=== PATIENT | male | born 1935 | race Caucasian/White ===

== ENCOUNTER 2020-11-17 07:17 | Day surgery (SDC) | payer MEDICARE, OTHER ==
[2020-11-16 11:50] LABS: BASOPHILS # (AUTO) 0.1 X10'3 (0-0.2); BASOPHILS % (AUTO) 0.9 % (0-1); EOSINOPHILS # (AUTO) 0.2 X10'3 (0-0.9); EOSINOPHILS % (AUTO) 1.9 % (0-6); HEMATOCRIT 41.6 % (42.0-52.0); HEMOGLOBIN 13.8 g/dl (14.0-17.9); LYMPHOCYTES # (AUTO) 1.4 X10'3 (1.1-4.8); LYMPHOCYTES % (AUTO) 13.9 % (21-51); MEAN CORPUSCULAR HEMOGLOBIN 32.8 PG (27.0-31.0); MEAN CORPUSCULAR HGB CONC 33.1 g/dL (33.0-36.5); MEAN CORPUSCULAR VOLUME 98.9 FL (78-98); MEAN PLATELET VOLUME 7.6 FL (7.4-10.4); MONOCYTES # (AUTO) 0.8 X10'3 (0-0.9); NEUTROPHILS # (AUTO) 7.5 X10'3 (1.8-7.7); NEUTROPHILS % (AUTO) 75.3 % (42-75); PLATELET COUNT 388 X10'3 (140-440); RED CELL DISTRIBUTION WIDTH 15.4 % (11.5-14.5)
[2020-11-16 12:00] LABS: PARTIAL THROMBOPLASTIN TIME 29 SECONDS (22-32)
[2020-11-16 12:01] LABS: ALBUMIN 3.3 G/DL (3.4-5.0); ANION GAP 9 (8-16); BLOOD UREA NITROGEN 25 MG/DL (7-18); CALCIUM 9.3 MG/DL (8.5-10.1); CHLORIDE 107 MMOL/L (99-107); CREATININE 1.25 MG/DL (0.60-1.10); GLUCOSE 90 MG/DL (70-104); POTASSIUM 4.2 MMOL/L (3.5-5.1); SODIUM 142 MMOL/L (135-145); TOTAL CARBON DIOXIDE 26.5 MMOL/L (24-32); eGFR 55 ML/MIN
[~2020-11-17] VITALS: Ht 177.8 cm; Wt 95.4 kg
[2020-11-17] VITALS (11 sets, daily range): BP systolic 94–132; BP diastolic 55–86
[~2020-11-17 07:17] MED LIST: nitroGLYCERIN-Tridil 50MG/D5W 250 ML IV ONE
[2020-11-17] MEDS ORDERED: LIDOcaine/PRILOcaine 5gm cream TP ONE (07:50)
[2020-11-17] MEDS ORDERED: LORazepam 0.5 MG tablet PO PRN (07:50)
[2020-11-17] MEDS ORDERED: diphenhydrAMINE 25mg capsule PO PRN (07:50)
[2020-11-17] MEDS ORDERED: normal saline 1,000 ML IV SCH (07:50)
[2020-11-17] MEDS ORDERED: verapamil 2.5 mg/ml inj IV ONE (08:15)
[2020-11-17] MEDS ORDERED: fentaNYL/PF 50MCG/1 ML 2ML syringe ONE (08:15)
[2020-11-17] MEDS ORDERED: LIDOcaine 1% (10mg/ml)w/preservative injection 20ml MDV ONE (08:15)
[2020-11-17] MEDS ORDERED: heparin 1,000unit/ml 10ml vial 10 ML ONE (08:15)
[2020-11-17] MEDS ORDERED: iohexol 350MG/ML 100ml bottle IV ONE (08:15)
[2020-11-17] MEDS ORDERED: midazolam 2 mg/2 ml injection ONE (08:15)
[2020-11-17] MEDS ORDERED: iohexol 350 MG/ML 50ML vial IV ONE (08:15)
[2020-11-17] MEDS ORDERED: nitroGLYCERIN-Tridil 50MG/D5W 250 ML IV ONE (08:16)
[2020-11-17] MEDS ORDERED: APIX5TAB3 PO (08:33)
[2020-11-17] MEDS ORDERED: METO-539 PO (08:34)
[2020-11-17] MEDS ORDERED: ALLO100T PO (08:36)
[2020-11-17] MEDS ORDERED: VITC500T PO (08:39)
[2020-11-17] MEDS ORDERED: FURO-150 PO (08:40)
[2020-11-17] MEDS ORDERED: OMEG1CAP46 PO (08:41)
[2020-11-17] MEDS ORDERED: ASPI81TA52 PO (08:42)
[2020-11-17] MEDS ORDERED: POTA20TA19 PO (08:42)
[2020-11-17 09:50] LABS: ISTAT HGB ART 12.9 g/dl (14.0-18.0); ISTAT Hct ART 38 %PCV (42-52); ISTAT O2 SATURATION ARTERIAL 96 % (95-98); ISTAT SOURCE ART
[2020-11-17] MEDS ORDERED: normal saline 1000ml 1,000 ML IV SCH (10:15)
--- NOTE | 2020-11-17 13:45 | NUR ---
VASCULAR BAND REMOVED, DRSG OF STERILE 2X2 AND TEGADERM PLACED, SITE SOFT AND PALPABLE NO SIGN OF HEMATOMA. DRSG TOPPED WITH FOLDED 4X4'S AND COFLEX. PT UNDERSTANDS TOPPER CAN BE REMOVED PRN IS JUST FOR COMFORT AND SUPPORT. TEGADERM DRSG TO BE REMOVED 24-48 HOURS PRIOR TO SHOWER. DRSG REMOVED FROM RIGHT A/C, SITE CLEAR OF HEMATOMA, LARGE BANDAID PLACED OVER SITE. Addendum: 11/17/20 at 1556 by Deepika Araujo RN CORRECTED TIME OF VASCULAR BAND REMOVAL IS 1415
== END 2020-11-17 15:10 | disposition home or self-care (01) ==
LOC: SSTAY O 07:17
PROVIDERS: ATTEND Internal Medicine Cardiovascular Disease
DX: R53.83 Other fatigue (principal); R07.9 Chest pain, unspecified; I25.10 Atherosclerotic heart disease of native coronary artery without angina pectoris; I48.91 Unspecified atrial fibrillation; I11.0 Hypertensive heart disease with heart failure; I50.9 Heart failure, unspecified; E78.5 Hyperlipidemia, unspecified; M10.9 Gout, unspecified; M19.90 Unspecified osteoarthritis, unspecified site; I34.0 Nonrheumatic mitral (valve) insufficiency; E66.9 Obesity, unspecified; Z68.30 Body mass index [BMI] 30.0-30.9, adult; Z79.01 Long term (current) use of anticoagulants; Z98.41 Cataract extraction status, right eye; Z79.899 Other long term (current) drug therapy; Z79.82 Long term (current) use of aspirin; Z98.42 Cataract extraction status, left eye; Z86.16 Personal history of COVID-19; Z98.890 Other specified postprocedural states; Z82.49 Family history of ischemic heart disease and other diseases of the circulatory system; Z83.6 Family history of other diseases of the respiratory system
CPT/HCPCS: 36415; 76937; 80048; 82803; 85014; 85025; 85610; 85730; 93005; 93460; 99152; 99153; C1769; C1894; J1644; J2001; J2250; J3010; Q9967; A4620; A6258; C1751; J3490

== ENCOUNTER 2020-11-30 08:02 | Day surgery (SDC) | payer MEDICARE, OTHER ==
[2020-11-29 14:14] LABS: BASOPHILS % (AUTO) 0.3 % (0-1); EOSINOPHILS # (AUTO) 0.1 X10'3 (0-0.9); EOSINOPHILS % (AUTO) 1.7 % (0-6); HEMATOCRIT 40.4 % (42.0-52.0); HEMOGLOBIN 13.3 g/dl (14.0-17.9); LYMPHOCYTES # (AUTO) 0.9 X10'3 (1.1-4.8); MEAN CORPUSCULAR HEMOGLOBIN 32.6 PG (27.0-31.0); MEAN CORPUSCULAR HGB CONC 32.9 g/dL (33.0-36.5); MEAN CORPUSCULAR VOLUME 98.9 FL (78-98); MEAN PLATELET VOLUME 7.7 FL (7.4-10.4); MONOCYTES # (AUTO) 0.8 X10'3 (0-0.9); MONOCYTES % (AUTO) 11.1 % (2-12); NEUTROPHILS # (AUTO) 5.2 X10'3 (1.8-7.7); NEUTROPHILS % (AUTO) 73.9 % (42-75); PLATELET COUNT 244 X10'3 (140-440); RED BLOOD COUNT 4.08 X10'6 (4.70-6.10)
[2020-11-29 14:16] LABS: ALBUMIN 3.1 G/DL (3.4-5.0); ANION GAP 8 (8-16); BLOOD UREA NITROGEN 23 MG/DL (7-18); BUN/CREATININE RATIO 18.7 (5.4-32.0); CALCIUM 8.7 MG/DL (8.5-10.1); CHLORIDE 105 MMOL/L (99-107); CREATININE 1.23 MG/DL (0.60-1.10); GLUCOSE 95 MG/DL (70-104); POTASSIUM 4.4 MMOL/L (3.5-5.1); SODIUM 141 MMOL/L (135-145); eGFR 56 ML/MIN
[2020-11-30] VITALS (14 sets, daily range): BP systolic 99–132; BP diastolic 58–83
[~2020-11-30] VITALS: Ht 170.2 cm; Wt 95.6 kg
[~2020-11-30 08:02] MED LIST changes: +ALLO100T PO; +APIX5TAB3 PO; +ASPI81TA52 PO; +FURO-150 PO; +METO-539 PO; +OMEG1CAP46 PO; +POTA20TA19 PO; +VITC500T PO; -nitroGLYCERIN-Tridil 50MG/D5W 250 ML IV ONE
[2020-11-30] MEDS ORDERED: ATOR10TA70 PO (08:34)
[2020-11-30] MEDS ORDERED: OMEG1CAP46 PO (08:34)
[2020-11-30] MEDS ORDERED: NITR0.4T48 (08:35)
[2020-11-30] MEDS ORDERED: AMIO200T61 PO (08:35)
[2020-11-30] MEDS ORDERED: MULT-1085 PO (08:36)
[2020-11-30] MEDS ORDERED: amiodarone 150mg/dext, iso-os 100 ML IV ONE (08:45)
[2020-11-30] MEDS ORDERED: atropine 0.1mg/ml 10ml syringe IV ONE (08:45)
[2020-11-30] MEDS ORDERED: MIDAZolam 1mg/ml 10ml vial IV ONE (08:45)
[2020-11-30] MEDS ORDERED: morphine 10mg/ml inj. IV ONE (08:45)
[2020-11-30] MEDS ORDERED: LORazepam 0.5 MG tablet PO ONE (08:45)
[2020-11-30] MEDS ORDERED: diphenhydrAMINE 25mg capsule PO ONE (08:45)
[2020-11-30] MEDS ORDERED: POTASSIUM BICARB 20meq eff tab 20 MEQ TABLET.EFF PO ONE (09:50)
[2020-11-30] MEDS ORDERED: furosemide 40mg/4ml inj IV ONE (09:50)
== END 2020-11-30 13:05 | disposition home or self-care (01) ==
LOC: SSTAY O 08:02
PROVIDERS: ATTEND Internal Medicine Cardiovascular Disease
DX: I48.19 Other persistent atrial fibrillation (principal); E78.5 Hyperlipidemia, unspecified; I25.10 Atherosclerotic heart disease of native coronary artery without angina pectoris; I11.0 Hypertensive heart disease with heart failure; I50.9 Heart failure, unspecified; M10.9 Gout, unspecified; M19.90 Unspecified osteoarthritis, unspecified site; E66.9 Obesity, unspecified; Z68.30 Body mass index [BMI] 30.0-30.9, adult; Z79.899 Other long term (current) drug therapy; Z79.01 Long term (current) use of anticoagulants; Z79.82 Long term (current) use of aspirin; Z98.41 Cataract extraction status, right eye; Z98.42 Cataract extraction status, left eye; Z82.49 Family history of ischemic heart disease and other diseases of the circulatory system
CPT/HCPCS: 36415; 80048; 85025; 85610; 92960; 93005

== ENCOUNTER 2020-12-08 12:05 | Emergency (ER) | payer MEDICARE, OTHER ==
[~2020-12-08] VITALS: Ht 177.8 cm; Wt 86.0 kg
[~2020-12-08 12:05] MED LIST changes: +AMIO200T61 PO; -ASPI81TA52 PO; +ATOR10TA70 PO; +MULT-1085 PO; +NITR0.4T48
[2020-12-08 13:34] LABS: BASOPHILS % (AUTO) 0.4 % (0-1); EOSINOPHILS # (AUTO) 0.3 X10'3 (0-0.9); EOSINOPHILS % (AUTO) 3.9 % (0-6); HEMATOCRIT 38.9 % (42.0-52.0); HEMOGLOBIN 12.9 g/dl (14.0-17.9); LYMPHOCYTES # (AUTO) 1.2 X10'3 (1.1-4.8); LYMPHOCYTES % (AUTO) 18.8 % (21-51); MEAN CORPUSCULAR HEMOGLOBIN 32.3 PG (27.0-31.0); MEAN CORPUSCULAR VOLUME 97.9 FL (78-98); MEAN PLATELET VOLUME 7.7 FL (7.4-10.4); MONOCYTES # (AUTO) 0.8 X10'3 (0-0.9); MONOCYTES % (AUTO) 12.4 % (2-12); NEUTROPHILS # (AUTO) 4.2 X10'3 (1.8-7.7); NEUTROPHILS % (AUTO) 64.5 % (42-75); PLATELET COUNT 254 X10'3 (140-440); RED BLOOD COUNT 3.98 X10'6 (4.70-6.10); RED CELL DISTRIBUTION WIDTH 15.4 % (11.5-14.5); WHITE BLOOD COUNT 6.6 X10'3 (4.5-11.0)
[2020-12-08 13:47] LABS: ALANINE AMINOTRANSFERASE 38 U/L (12-78); ALBUMIN 3.1 G/DL (3.4-5.0); ALBUMIN/GLOBULIN RATIO 0.9 (1.1-1.5); ALKALINE PHOSPHATASE 83 IU/L (46-116); ANION GAP 6 (8-16); ASPARTATE AMINO TRANSFERASE 27 U/L (10-37); BILIRUBIN,TOTAL 0.6 MG/DL (0.1-1.0); BLOOD UREA NITROGEN 23 MG/DL (7-18); BUN/CREATININE RATIO 19.7 (5.4-32.0); CHLORIDE 103 MMOL/L (99-107); CREATININE 1.17 MG/DL (0.60-1.10); GLUCOSE 87 MG/DL (70-104); POTASSIUM 4.2 MMOL/L (3.5-5.1); SODIUM 141 MMOL/L (135-145); TOTAL CARBON DIOXIDE 31.6 MMOL/L (24-32); TOTAL PROTEIN 6.5 G/DL (6.4-8.2); eGFR 59 ML/MIN
[2020-12-08 16:10] VITALS: BP 100/74
== END 2020-12-08 14:29 | disposition home or self-care (01) ==
LOC: ER 12:05
DX: J90 Pleural effusion, not elsewhere classified (principal); R06.02 Shortness of breath; R06.01 Orthopnea; R50.9 Fever, unspecified; I48.91 Unspecified atrial fibrillation; I25.10 Atherosclerotic heart disease of native coronary artery without angina pectoris; I11.0 Hypertensive heart disease with heart failure; I50.9 Heart failure, unspecified; E78.00 Pure hypercholesterolemia, unspecified; Z79.899 Other long term (current) drug therapy
CPT/HCPCS: 36415; 71045; 80053; 85025; 85610; 93005; 99285

== ENCOUNTER 2022-01-04 11:10 | Emergency (ER) | payer MEDICARE, OTHER ==
[~2022-01-04] VITALS: Ht 172.7 cm; Wt 88.2 kg
[~2022-01-04 11:10] MED LIST changes: +POTA-207 PO; -POTA20TA19 PO
[2022-01-04 11:51] LABS: BASOPHILS % (AUTO) 0.5 % (0-1); EOSINOPHILS # (AUTO) 0.1 X10'3 (0-0.9); EOSINOPHILS % (AUTO) 2.4 % (0-6); HEMATOCRIT 32.7 % (42.0-52.0); LYMPHOCYTES % (AUTO) 17.9 % (21-51); MEAN CORPUSCULAR HGB CONC 33.8 g/dL (33.0-36.5); MEAN CORPUSCULAR VOLUME 106.5 FL (78-98); MEAN PLATELET VOLUME 6.8 FL (7.4-10.4); MONOCYTES # (AUTO) 0.7 X10'3 (0-0.9); MONOCYTES % (AUTO) 12.9 % (2-12); NEUTROPHILS # (AUTO) 3.6 X10'3 (1.8-7.7); NEUTROPHILS % (AUTO) 66.3 % (42-75); PLATELET COUNT 225 X10'3 (140-440); RED BLOOD COUNT 3.07 X10'6 (4.70-6.10); WHITE BLOOD COUNT 5.4 X10'3 (4.5-11.0)
[2022-01-04 12:08] LABS: ALANINE AMINOTRANSFERASE 34 U/L (12-78); ALBUMIN 3.8 G/DL (3.4-5.0); ALBUMIN/GLOBULIN RATIO 1.1 (1.1-1.5); ALKALINE PHOSPHATASE 148 IU/L (46-116); ANION GAP 9 (8-16); ASPARTATE AMINO TRANSFERASE 28 U/L (10-37); BILIRUBIN,TOTAL 0.7 MG/DL (0.1-1.0); BLOOD UREA NITROGEN 39 MG/DL (7-18); BUN/CREATININE RATIO 32.8 (5.4-32.0); CALCIUM 8.8 MG/DL (8.5-10.1); CHLORIDE 104 MMOL/L (99-107); CREATININE 1.19 MG/DL (0.60-1.10); GLUCOSE 82 MG/DL (70-104); POTASSIUM 4.7 MMOL/L (3.5-5.1); SODIUM 141 MMOL/L (135-145); TOTAL CARBON DIOXIDE 27.6 MMOL/L (24-32); TOTAL PROTEIN 7.4 G/DL (6.4-8.2); eGFR 58 ML/MIN
[2022-01-04] MEDS ORDERED: furosemide 10 MG/1 ML 10ml inj IV ONE (13:00)
[2022-01-04] MEDS ORDERED: FURO-150 PO (13:02)
[2022-01-04 13:22] VITALS: BP 118/81
== END 2022-01-04 13:23 | disposition home or self-care (01) ==
LOC: ER 11:11
DX: J90 Pleural effusion, not elsewhere classified (principal); I50.9 Heart failure, unspecified; I48.91 Unspecified atrial fibrillation; I11.0 Hypertensive heart disease with heart failure; I25.10 Atherosclerotic heart disease of native coronary artery without angina pectoris; E78.00 Pure hypercholesterolemia, unspecified; Z79.899 Other long term (current) drug therapy
CPT/HCPCS: 36415; 71045; 80053; 83880; 84484; 85025; 93005; 96374; 99285; J1940

== ENCOUNTER 2022-05-23 08:53 | Outpatient (CLI) | payer MEDICARE, OTHER ==
[~2022-05-23] VITALS: Ht 162.6 cm; Wt 75.7 kg
[2022-05-23] MEDS ORDERED: regadenoson 0.4mg/5ml syringe IV ONE (09:55)
[2022-05-23] MEDS ORDERED: nitroGLYCERIN 0.4mg SUBLingual tab SL PRN (10:15)
[2022-05-23 10:26] VITALS: BP 104/54
[2022-05-23] MEDS ORDERED: aminophylline 500mg/20ml vial IV ONE (10:30)
[2022-05-23] MEDS ORDERED: aminophylline 250mg/10ml inj. IV ONE (10:35)
[2022-05-23 10:57] VITALS: BP 93/50
[2022-05-23 10:58] VITALS: BP 98/45
[2022-05-23 10:59] VITALS: BP 98/41
[2022-05-23 11:00] VITALS: BP 98/43
[2022-05-23 11:01] VITALS: BP 101/44
== END 2022-05-23 23:59 | disposition home or self-care (01) ==
LOC: RAD 08:53
PROVIDERS: ATTEND Internal Medicine Cardiovascular Disease
DX: I08.8 Other rheumatic multiple valve diseases (principal); I25.10 Atherosclerotic heart disease of native coronary artery without angina pectoris; I50.30 Unspecified diastolic (congestive) heart failure
CPT/HCPCS: 78452; 93306; A9500; J0280; J2785

== ENCOUNTER 2022-06-11 16:23 | Emergency (ER) | payer MEDICARE, OTHER ==
[~2022-06-11] VITALS: Ht 177.8 cm; Wt 79.5 kg
[2022-06-11 16:31] VITALS: BP 101/63
[2022-06-11 17:05] LABS: BASOPHILS % (AUTO) 0.2 % (0-1); EOSINOPHILS # (AUTO) 0.1 X10'3 (0-0.9); EOSINOPHILS % (AUTO) 1.5 % (0-6); HEMATOCRIT 35.1 % (42.0-52.0); HEMOGLOBIN 11.8 g/dl (14.0-17.9); LYMPHOCYTES # (AUTO) 0.7 X10'3 (1.1-4.8); LYMPHOCYTES % (AUTO) 8.3 % (21-51); MEAN CORPUSCULAR HEMOGLOBIN 35.3 PG (27.0-31.0); MEAN CORPUSCULAR HGB CONC 33.7 g/dL (33.0-36.5); MEAN CORPUSCULAR VOLUME 104.5 FL (78-98); MEAN PLATELET VOLUME 7.6 FL (7.4-10.4); MONOCYTES # (AUTO) 0.8 X10'3 (0-0.9); MONOCYTES % (AUTO) 8.6 % (2-12); NEUTROPHILS # (AUTO) 7.3 X10'3 (1.8-7.7); NEUTROPHILS % (AUTO) 81.4 % (42-75); PLATELET COUNT 275 X10'3 (140-440); RED BLOOD COUNT 3.36 X10'6 (4.70-6.10); RED CELL DISTRIBUTION WIDTH 15.3 % (11.5-14.5); WHITE BLOOD COUNT 8.9 X10'3 (4.5-11.0)
[2022-06-11 17:15] LABS: ALANINE AMINOTRANSFERASE 38 U/L (12-78); ALBUMIN 3.6 G/DL (3.4-5.0); ALBUMIN/GLOBULIN RATIO 0.8 (1.1-1.5); ALKALINE PHOSPHATASE 161 IU/L (46-116); ANION GAP 12 (8-16); ASPARTATE AMINO TRANSFERASE 28 U/L (10-37); BILIRUBIN,TOTAL 0.6 MG/DL (0.1-1.0); BLOOD UREA NITROGEN 40 MG/DL (7-18); BUN/CREATININE RATIO 38.8 (5.4-32.0); CALCIUM 9.7 MG/DL (8.5-10.1); CHLORIDE 98 MMOL/L (99-107); CREATININE 1.03 MG/DL (0.60-1.10); GLUCOSE 94 MG/DL (70-104); POTASSIUM 4.2 MMOL/L (3.5-5.1); SODIUM 140 MMOL/L (135-145); TOTAL CARBON DIOXIDE 30.4 MMOL/L (24-32); TOTAL PROTEIN 7.9 G/DL (6.4-8.2); eGFR 68 ML/MIN
== END 2022-06-11 18:56 | disposition left against medical advice (07) ==
LOC: ER 16:25
DX: R07.9 Chest pain, unspecified (principal); Z53.21 Procedure and treatment not carried out due to patient leaving prior to being seen by health care provider
CPT/HCPCS: 36415; 71045; 80053; 83880; 84484; 85025; 93005

== ENCOUNTER 2022-06-26 16:29 | Inpatient (IN) | payer MEDICARE, OTHER ==
[~2022-06-26] VITALS: Ht 170.2 cm; Wt 72.8 kg
[2022-06-26] MEDS ORDERED: normal saline 1000ML IV soln IVB ONE (16:45)
[2022-06-26 16:54] LABS: BASOPHILS % (AUTO) 0.1 % (0-1); EOSINOPHILS % (AUTO) 0.3 % (0-6); HEMATOCRIT 31.1 % (42.0-52.0); HEMOGLOBIN 10.3 g/dl (14.0-17.9); LYMPHOCYTES # (AUTO) 0.5 X10'3 (1.1-4.8); LYMPHOCYTES % (AUTO) 3.2 % (21-51); MEAN CORPUSCULAR HEMOGLOBIN 34.5 PG (27.0-31.0); MEAN CORPUSCULAR VOLUME 104.4 FL (78-98); MEAN PLATELET VOLUME 7.7 FL (7.4-10.4); MONOCYTES # (AUTO) 0.8 X10'3 (0-0.9); MONOCYTES % (AUTO) 5.9 % (2-12); NEUTROPHILS # (AUTO) 12.8 X10'3 (1.8-7.7); NEUTROPHILS % (AUTO) 90.5 % (42-75); PLATELET COUNT 218 X10'3 (140-440); RED BLOOD COUNT 2.98 X10'6 (4.70-6.10); RED CELL DISTRIBUTION WIDTH 15.2 % (11.5-14.5); WHITE BLOOD COUNT 14.1 X10'3 (4.5-11.0)
[2022-06-26 17:12] LABS: ALANINE AMINOTRANSFERASE 30 U/L (12-78); ALBUMIN 3.1 G/DL (3.4-5.0); ALBUMIN/GLOBULIN RATIO 0.9 (1.1-1.5); ALKALINE PHOSPHATASE 133 IU/L (46-116); ANION GAP 6 (8-16); ASPARTATE AMINO TRANSFERASE 24 U/L (10-37); BLOOD UREA NITROGEN 26 MG/DL (7-18); BUN/CREATININE RATIO 27.1 (5.4-32.0); CALCIUM 8.6 MG/DL (8.5-10.1); CHLORIDE 102 MMOL/L (99-107); CREATININE 0.96 MG/DL (0.60-1.10); GLUCOSE 107 MG/DL (70-104); POTASSIUM 3.8 MMOL/L (3.5-5.1); SODIUM 145 MMOL/L (135-145); TOTAL CARBON DIOXIDE 36.9 MMOL/L (24-32); TOTAL PROTEIN 6.7 G/DL (6.4-8.2); eGFR 74 ML/MIN
[2022-06-26] MEDS ORDERED: CefTRIAXone 2gm/D5W 50ml BAG 50 ML IV ONE (17:45)
[2022-06-26] MEDS ORDERED: azithromycin/NS 500mg/250ml 250 ML IV ONE (17:49)
[2022-06-26] MEDS ORDERED: bisacodyl 10mg suppository rectal RC PRN (18:15)
[2022-06-26] MEDS ORDERED: POTASSIUM BICARB 20meq eff tab 20 MEQ TABLET.EFF PO PRN ×2 (18:15)
[2022-06-26] MEDS ORDERED: ondansetron/PF 4mg/2ml inj IV PRN (18:15)
[2022-06-26] MEDS ORDERED: HYDROcodone/acetaminophen 10/325mg tab PO PRN (18:15)
[2022-06-26] MEDS ORDERED: magnesium 4gm in 100ml NS 100 ML IV PRN (18:15)
[2022-06-26] MEDS ORDERED: magnesium 2GM in 50ml NS 50 ML IV PRN (18:15)
[2022-06-26] MEDS ORDERED: ondansetron 4mg rapidly disintigrating tab PO PRN (18:15)
[2022-06-26] MEDS ORDERED: potassium CL 10mEq/100ml bag 100 ML IV PRN (18:15)
[2022-06-26] MEDS ORDERED: mag hydrox/Alum hydrox/simeth 30ml oral suspension PO PRN (18:15)
[2022-06-26] MEDS ORDERED: acetaminophen 650mg rectal suppository RC PRN (18:15)
[2022-06-26] MEDS ORDERED: HYDROcodone/acetaminophen 5mg/325mg tablet PO PRN (18:15)
[2022-06-26] MEDS ORDERED: acetaminophen 325mg tablet PO PRN ×2 (18:15)
[2022-06-26] MEDS ORDERED: magnesium hydroxide 30ml (MOM) UD suspension PO PRN (18:15)
[2022-06-26] MEDS ORDERED: magnesium Cl slow-release 64mg tablet PO PRN (18:15)
[2022-06-26] MEDS ORDERED: PERFLUTREN PROTEIN-A MICROSPHR (Optison) 0.22 MG/ML 3ML VIAL IV ONE (18:15)
--- NOTE | 2022-06-26 18:30 | NUR ---
Dr. Reno in with patient, he is to be admitted for PNA. He is resting comfortably on gurney with family at bedside.
[2022-06-26 18:58] LABS: CHOLESTEROL 122 MG/DL (0-200); HDL CHOLESTEROL 62 MG/DL (35-60); LDL CHOLESTEROL 49 MG/DL (50-100); MAGNESIUM 1.9 MG/DL (1.5-2.4); TRIGLYCERIDES 53 MG/DL (20-135)
[2022-06-26] MEDS: K and/or MAG REPLACEMENT MC SCH (20:00)
[2022-06-26] MEDS: furosemide 20 MG/2 ML vial IV SCH (20:00)
[2022-06-26] MEDS: docusate sod 100mg capsule PO SCH (20:00)
[2022-06-26 20:01] LABS: CLARITY,URINE CLEAR (Clear); COLOR,URINE YELLOW (Yellow); GLUCOSE, URINE NEGATIVE (Neg); KETONES,URINE NEGATIVE (Neg); LEUKOCYTE ESTERASE ,URINE NEGATIVE (Neg); NITRITES, URINE NEGATIVE (Neg); OCCULT BLOOD,URINE NEGATIVE (Neg); PH,URINE 5.5 (4.8-8.0); PROTEIN,URINE NEGATIVE (Neg); UROBILINOGEN,URINE 0.2 E.U/dL (0.2-1.0)
[2022-06-26 20:13] LABS: UA COLLECTION TYPE NON-SPECIFIED
[2022-06-26] MEDS: apixaban 5mg tablet PO SCH (20:35)
--- NOTE | 2022-06-26 22:19 | NUR ---
Moved to hosptial bed.
[2022-06-27 07:45] LABS: BASOPHILS % (AUTO) 0.1 % (0-1); EOSINOPHILS % (AUTO) 0.3 % (0-6); HEMATOCRIT 27.2 % (42.0-52.0); HEMOGLOBIN 9.2 g/dl (14.0-17.9); LYMPHOCYTES # (AUTO) 0.8 X10'3 (1.1-4.8); LYMPHOCYTES % (AUTO) 6.8 % (21-51); MEAN CORPUSCULAR HGB CONC 33.6 g/dL (33.0-36.5); MEAN CORPUSCULAR VOLUME 104.1 FL (78-98); MEAN PLATELET VOLUME 7.8 FL (7.4-10.4); MONOCYTES # (AUTO) 0.8 X10'3 (0-0.9); MONOCYTES % (AUTO) 6.9 % (2-12); NEUTROPHILS # (AUTO) 9.6 X10'3 (1.8-7.7); NEUTROPHILS % (AUTO) 85.9 % (42-75); PLATELET COUNT 178 X10'3 (140-440); RED BLOOD COUNT 2.61 X10'6 (4.70-6.10); RED CELL DISTRIBUTION WIDTH 15.1 % (11.5-14.5); WHITE BLOOD COUNT 11.2 X10'3 (4.5-11.0)
[2022-06-27 07:56] LABS: ALANINE AMINOTRANSFERASE 23 U/L (12-78); ALBUMIN 2.7 G/DL (3.4-5.0); ALBUMIN/GLOBULIN RATIO 0.8 (1.1-1.5); ALKALINE PHOSPHATASE 114 IU/L (46-116); ANION GAP 0 (8-16); ASPARTATE AMINO TRANSFERASE 18 U/L (10-37); BILIRUBIN,TOTAL 0.7 MG/DL (0.1-1.0); BLOOD UREA NITROGEN 31 MG/DL (7-18); BUN/CREATININE RATIO 29.2 (5.4-32.0); CALCIUM 8.6 MG/DL (8.5-10.1); CHLORIDE 103 MMOL/L (99-107); CREATININE 1.06 MG/DL (0.60-1.10); GLUCOSE 88 MG/DL (70-104); MAGNESIUM 1.8 MG/DL (1.5-2.4); PHOSPHORUS 3.9 MG/DL (2.3-4.5); POTASSIUM 4.1 MMOL/L (3.5-5.1); SODIUM 142 MMOL/L (135-145); TOTAL CARBON DIOXIDE 39.2 MMOL/L (24-32); TOTAL PROTEIN 6.1 G/DL (6.4-8.2); eGFR 66 ML/MIN
[2022-06-27 08:00] VITALS: BP 98/62
[2022-06-27] MEDS: azithromycin 250mg tablet PO SCH (08:24)
[2022-06-27] MEDS: CefTRIAXone/D5W-Rocephin 1gm 50 ML IV SCH (08:24)
[2022-06-27] MEDS: amiodarone 200mg tablet PO SCH (08:24)
[2022-06-27] MEDS: apixaban 5mg tablet PO SCH ×2 (08:25→19:34)
[2022-06-27] MEDS: K and/or MAG REPLACEMENT MC SCH ×2 (08:25→19:16)
[2022-06-27] MEDS: docusate sod 100mg capsule PO SCH ×2 (08:25→19:34)
[2022-06-27] MEDS: furosemide 20 MG/2 ML vial IV SCH ×2 (08:26→19:33)
[2022-06-27] MEDS: metoprolol succinate 25mg (24-HOUR) SR. Tablet PO SCH (08:28)
[2022-06-27] MEDS: potassium Cl 20 mEq SR tablet PO SCH (08:29)
[2022-06-27 11:11] VITALS: BP 83/59
[2022-06-27] MEDS ORDERED: iohexol 350MG/ML 100ml bottle IV ONE (15:23)
[2022-06-27 15:56] VITALS: BP 95/58
[2022-06-27 18:00] VITALS: BP 95/64
--- NOTE | 2022-06-27 18:00 | NUR ---
Patient in room PCU 3023. I have received report from Salas MULTANI and had the opportunity to ask questions and assume patient care.
[2022-06-27 22:00] VITALS: BP 95/60
[2022-06-28] VITALS (8 sets, daily range): BP systolic 89–115; BP diastolic 52–70
[2022-06-28 06:10] LABS: BASOPHILS % (AUTO) 0.3 % (0-1); EOSINOPHILS # (AUTO) 0.1 X10'3 (0-0.9); EOSINOPHILS % (AUTO) 0.5 % (0-6); HEMATOCRIT 27.7 % (42.0-52.0); HEMOGLOBIN 9.4 g/dl (14.0-17.9); LYMPHOCYTES # (AUTO) 0.7 X10'3 (1.1-4.8); LYMPHOCYTES % (AUTO) 7.1 % (21-51); MEAN CORPUSCULAR HEMOGLOBIN 35.4 PG (27.0-31.0); MEAN CORPUSCULAR VOLUME 104.3 FL (78-98); MONOCYTES # (AUTO) 0.9 X10'3 (0-0.9); MONOCYTES % (AUTO) 8.7 % (2-12); NEUTROPHILS # (AUTO) 8.5 X10'3 (1.8-7.7); NEUTROPHILS % (AUTO) 83.4 % (42-75); PLATELET COUNT 188 X10'3 (140-440); RED BLOOD COUNT 2.66 X10'6 (4.70-6.10); RED CELL DISTRIBUTION WIDTH 15.2 % (11.5-14.5); WHITE BLOOD COUNT 10.2 X10'3 (4.5-11.0)
[2022-06-28 06:23] LABS: ALANINE AMINOTRANSFERASE 24 U/L (12-78); ALBUMIN 2.7 G/DL (3.4-5.0); ALBUMIN/GLOBULIN RATIO 0.8 (1.1-1.5); ALKALINE PHOSPHATASE 115 IU/L (46-116); ANION GAP 2 (8-16); ASPARTATE AMINO TRANSFERASE 18 U/L (10-37); BILIRUBIN,TOTAL 0.7 MG/DL (0.1-1.0); BLOOD UREA NITROGEN 39 MG/DL (7-18); CALCIUM 8.9 MG/DL (8.5-10.1); CHLORIDE 103 MMOL/L (99-107); CREATININE 1.22 MG/DL (0.60-1.10); GLUCOSE 96 MG/DL (70-104); MAGNESIUM 1.9 MG/DL (1.5-2.4); PHOSPHORUS 3.9 MG/DL (2.3-4.5); POTASSIUM 4.2 MMOL/L (3.5-5.1); SODIUM 143 MMOL/L (135-145); TOTAL CARBON DIOXIDE 37.7 MMOL/L (24-32); TOTAL PROTEIN 6.3 G/DL (6.4-8.2); eGFR 56 ML/MIN
--- NOTE | 2022-06-28 07:30 | NUR ---
Patient in room PCU 3023. I have received report from NERISSA ANDREWS, and had the opportunity to ask questions and assume patient care.
[2022-06-28] MEDS: K and/or MAG REPLACEMENT MC SCH ×2 (08:00→19:35)
[2022-06-28] MEDS: metoprolol succinate 25mg (24-HOUR) SR. Tablet PO SCH (08:00)
[2022-06-28] MEDS: docusate sod 100mg capsule PO SCH ×2 (08:00→20:00)
[2022-06-28] MEDS: CefTRIAXone/D5W-Rocephin 1gm 50 ML IV SCH (08:19)
[2022-06-28] MEDS: furosemide 20 MG/2 ML vial IV SCH ×2 (08:21→20:30)
[2022-06-28] MEDS: apixaban 5mg tablet PO SCH ×2 (08:25→20:30)
[2022-06-28] MEDS: potassium Cl 20 mEq SR tablet PO SCH (08:25)
[2022-06-28] MEDS: azithromycin 250mg tablet PO SCH (08:26)
[2022-06-28] MEDS: amiodarone 200mg tablet PO SCH ×2 (08:27→20:30)
--- NOTE | 2022-06-28 10:47 | NUR ---
PAGE SENT TO RT 9482C, SALMA NGUYEN, CARDIOVERSION AROUND NOON. I WILL LET YOU KNOW MORE, WHEN I KNOW MORE. THANK YOU, NELY X [phone]
[2022-06-28] MEDS ORDERED: morphine 10mg/ml inj. IV ONE (11:40)
[2022-06-28] MEDS ORDERED: MIDAZolam 1mg/ml 10ml vial IV ONE (11:40)
[2022-06-28] MEDS ORDERED: amiodarone 150mg/dext, iso-os 100 ML IV ONE (12:45)
--- NOTE | 2022-06-28 13:46 | NUR ---
2 MG/2ML GIVEN FOR CARDIOVERSION.
--- NOTE | 2022-06-28 13:46 | NUR ---
ORDERS RECEIVED FROM DR. BAR: AMIODARONE 200 MG PO BID FOR 1 WEEK. AMIODARONE 200 MG PO DAILY THERE AFTER.
[2022-06-28] MEDS ORDERED: FURO40TA4 PO (15:26)
[2022-06-28] MEDS ORDERED: ALLO300T35 PO (15:26)
[2022-06-28] MEDS ORDERED: POTA20PA40 PO (15:33)
[2022-06-28] MEDS ORDERED: CYAN25004 SL (15:33)
[2022-06-28] MEDS ORDERED: ZINC50CA2 PO (15:33)
[2022-06-28] MEDS ORDERED: FERR-119 PO (15:33)
--- NOTE | 2022-06-28 16:00 | NUR ---
Problems reprioritized. Patient report given, questions answered & plan of care reviewed with Marianne MULTANI.
--- NOTE | 2022-06-28 18:00 | NUR ---
Patient in room PCU 3023. I have received report from Marianne MULTANI and had the opportunity to ask questions and assume patient care.
--- NOTE | 2022-06-28 18:41 | NUR ---
Problems reprioritized. Patient report given, questions answered & plan of care reviewed with NERISSA ANDREWS.
[2022-06-29 06:00] VITALS: BP 103/62
--- NOTE | 2022-06-29 06:15 | NUR ---
Patient in room PCU 3023. I have received report from NERISSA ANDREWS, and had the opportunity to ask questions and assume patient care.
[2022-06-29 06:35] LABS: BASOPHILS % (AUTO) 0.3 % (0-1); EOSINOPHILS # (AUTO) 0.1 X10'3 (0-0.9); EOSINOPHILS % (AUTO) 0.7 % (0-6); HEMATOCRIT 27.8 % (42.0-52.0); HEMOGLOBIN 9.4 g/dl (14.0-17.9); LYMPHOCYTES # (AUTO) 0.6 X10'3 (1.1-4.8); MEAN CORPUSCULAR HEMOGLOBIN 35.7 PG (27.0-31.0); MEAN PLATELET VOLUME 8.1 FL (7.4-10.4); MONOCYTES # (AUTO) 0.8 X10'3 (0-0.9); MONOCYTES % (AUTO) 8.7 % (2-12); NEUTROPHILS % (AUTO) 84.3 % (42-75); PLATELET COUNT 186 X10'3 (140-440); RED BLOOD COUNT 2.64 X10'6 (4.70-6.10); RED CELL DISTRIBUTION WIDTH 15.1 % (11.5-14.5); WHITE BLOOD COUNT 9.5 X10'3 (4.5-11.0)
[2022-06-29 07:00] LABS: ALANINE AMINOTRANSFERASE 27 U/L (12-78); ALBUMIN 2.9 G/DL (3.4-5.0); ALBUMIN/GLOBULIN RATIO 0.8 (1.1-1.5); ALKALINE PHOSPHATASE 129 IU/L (46-116); ANION GAP 7 (8-16); ASPARTATE AMINO TRANSFERASE 27 U/L (10-37); BILIRUBIN,TOTAL 0.5 MG/DL (0.1-1.0); BLOOD UREA NITROGEN 43 MG/DL (7-18); BUN/CREATININE RATIO 33.6 (5.4-32.0); CALCIUM 8.9 MG/DL (8.5-10.1); CHLORIDE 103 MMOL/L (99-107); CREATININE 1.28 MG/DL (0.60-1.10); GLUCOSE 103 MG/DL (70-104); MAGNESIUM 2.2 MG/DL (1.5-2.4); PHOSPHORUS 4.9 MG/DL (2.3-4.5); POTASSIUM 4.7 MMOL/L (3.5-5.1); SODIUM 144 MMOL/L (135-145); TOTAL CARBON DIOXIDE 33.8 MMOL/L (24-32); TOTAL PROTEIN 6.7 G/DL (6.4-8.2); eGFR 53 ML/MIN
[2022-06-29] MEDS: K and/or MAG REPLACEMENT MC SCH (08:00)
[2022-06-29] MEDS: furosemide 20 MG/2 ML vial IV SCH (08:51)
[2022-06-29] MEDS: amiodarone 200mg tablet PO SCH (08:58)
[2022-06-29] MEDS: apixaban 5mg tablet PO SCH (08:58)
[2022-06-29] MEDS: docusate sod 100mg capsule PO SCH (08:58)
[2022-06-29] MEDS: potassium Cl 20 mEq SR tablet PO SCH (08:58)
[2022-06-29] MEDS: azithromycin 250mg tablet PO SCH (08:58)
[2022-06-29] MEDS: metoprolol succinate 25mg (24-HOUR) SR. Tablet PO SCH (08:58)
[2022-06-29] MEDS: CefTRIAXone/D5W-Rocephin 1gm 50 ML IV SCH (09:00)
[2022-06-29] MEDS ORDERED: AMIO200T67 PO (10:18)
[2022-06-29] MEDS ORDERED: LEVO-65 PO (10:20)
[2022-06-29 11:07] VITALS: BP 98/63
--- NOTE | 2022-06-29 11:56 | NUR ---
PAGE SENT PAGER ID: [phone] MESSAGE: [id number], SALMA NGUYEN, UNABLE TO HAVE THORACENTESIS, BP TOO LOW. THANK YOU, NELY, X [phone]
--- NOTE | 2022-06-29 12:56 | NUR ---
PAGE SENT PAGER ID: [phone] MESSAGE: [id number], SALMAJulia NGUYEN. THEY WERE UNABLE TO DO THE THORACENTESIS D/T LOW BP. THANK YOU, NELY [phone]
[2022-06-29 14:41] VITALS: BP 98/55
--- NOTE | 2022-06-29 16:03 | NUR ---
PT STABLE FOR TRANSFER PER MD. PT TRANSFERRED TO [facility] BY [facility]OR[facility]. PT PHONED FAMILY TO NOTIFY OF TRANSFER. HANDOFF GIVEN TO SHOBHA KIM. PIV REMOVED WITH TIP INTACT. TELE BOX REMOVED. BELONGINGS GATHERED AND SENT WITH PT.
[2022-07-06] MEDS ORDERED: amiodarone 200mg tablet PO SCH (08:00)
== END 2022-06-29 16:17 | DRG 871 ==
LOC: ER 16:29 → ED HOLD 18:21 → EDBEDREQ 06-27 02:35 → PCU 3S 06-27 07:22
PROVIDERS: ADMIT Family Medicine; ATTEND Family Medicine
PROC: BW241ZZ Computerized Tomography (CT Scan) of Chest and Abdomen using Low Osmolar Contrast (ICD-10-PCS; principal; 2022-06-27)
DX: A41.9 Sepsis, unspecified organism (principal); I50.33 Acute on chronic diastolic (congestive) heart failure; J96.21 Acute and chronic respiratory failure with hypoxia; J18.9 Pneumonia, unspecified organism; I13.0 Hypertensive heart and chronic kidney disease with heart failure and stage 1 through stage 4 chronic kidney disease, or unspecified chronic kidney disease; I48.91 Unspecified atrial fibrillation; E78.00 Pure hypercholesterolemia, unspecified; Z20.822 Contact with and (suspected) exposure to COVID-19; R63.4 Abnormal weight loss; N18.9 Chronic kidney disease, unspecified; W01.198A Fall on same level from slipping, tripping and stumbling with subsequent striking against other object, initial encounter; M10.9 Gout, unspecified; M19.90 Unspecified osteoarthritis, unspecified site; D53.9 Nutritional anemia, unspecified; I95.9 Hypotension, unspecified; I25.10 Atherosclerotic heart disease of native coronary artery without angina pectoris; R62.7 Adult failure to thrive; Z79.01 Long term (current) use of anticoagulants; Z79.899 Other long term (current) drug therapy; Z86.16 Personal history of COVID-19; Z87.01 Personal history of pneumonia (recurrent); Z68.25 Body mass index [BMI] 25.0-25.9, adult; Y93.89 Activity, other specified; Y92.090 Kitchen in other non-institutional residence as the place of occurrence of the external cause; Y99.8 Other external cause status
CPT/HCPCS: 36415; 70450; 71045; 71260; 72125; 80053; 80061; 81003; 82607; 83735; 83880; 84100; 84145; 84443; 84484; 85025; 87811; 92960; 93005; 94760; 94799; 96365; 97161; 97530; 99285; A6212; A6213; A6449; C1729; G0378; J0282; J0456; J0696; J1940; J2250; J3490; J7030; J7040; Q9967